=== PATIENT | male | born 1960 | race Two or more races ===

== ENCOUNTER 2021-04-02 07:40 | Outpatient (CLI) | payer OTHER ==
[2021-04-05] MEDS ORDERED: LOTREL 10-20 M1 EACH PO (14:28)
[2021-04-05] MEDS ORDERED: XYZAL5 MG PO (14:29)
[2021-04-05] MEDS ORDERED: ATORVASTATIN CA10 MG PO (14:29)
[2021-04-05] MEDS ORDERED: HYDROCHLOROTHIA25 MG PO (14:29)
[2021-04-05] MEDS ORDERED: SINGULAIR 10MG10 MG PO (14:30)
== END 2021-04-02 07:59 | disposition home or self-care (01) ==
LOC: LAB 07:40
PROVIDERS: ATTEND Surgery
DX: I10 Essential (primary) hypertension (principal); K64.2 Third degree hemorrhoids; K62.89 Other specified diseases of anus and rectum; K62.5 Hemorrhage of anus and rectum; E72.11 Homocystinuria; Z01.89 Encounter for other specified special examinations

== ENCOUNTER 2021-04-08 05:40 | Day surgery (SDC) | payer OTHER ==
[~2021-04-08 05:40] MED LIST: ATORVASTATIN CA10 MG PO; HYDROCHLOROTHIA25 MG PO; LOTREL 10-20 M1 EACH PO; SINGULAIR 10MG10 MG PO; XYZAL5 MG PO
[2021-04-08] MEDS ORDERED: COLACE100 MG PO (08:42)
[2021-04-08] MEDS ORDERED: PERCOCET 5-3251 EACH PO (08:42)
== END 2021-04-08 14:05 | disposition home or self-care (01) ==
LOC: CIR.AMB 05:40
PROVIDERS: ATTEND Surgery
DX: K64.8 Other hemorrhoids (principal); Z20.822 Contact with and (suspected) exposure to COVID-19